=== PATIENT | female | born 1955 | race Caucasian/White ===

== ENCOUNTER → 2020-05-20 | Outpatient (CLI) | payer MEDICARE, MEDICAID ==
--- NOTE | 2020-05-20 16:28 | RAD ---
Renal ultrasound 05/20/2020 INDICATION: Acute renal failure COMPARISON STUDY: None Discussion: Ultrasound evaluation of the kidneys was performed. Static images are submitted to PACS. Right kidney is normal in appearance measuring 9.4 x 5.2 x 3.5 cm. The bladder is predominantly decompressed limiting evaluation. Left kidney is normal in appearance measuring 10.1 x 5.0 x 4.1 cm. There is no hydronephrosis, nephrolithiasis, or focal renal lesion involving either kidney. IMPRESSION: Unremarkable sonographic appearance of the kidneys Electronically signed by: Amado Mcqueen MD (05/20/2020 4:25 PM) [id number]
== END ==
LOC: US 14:59
PROVIDERS: ATTEND Internal Medicine Nephrology
DX: N17.9 Acute kidney failure, unspecified (principal)
CPT/HCPCS: 76770